=== PATIENT | female | born 1945 ===

== ENCOUNTER 2023-02-25 06:05 | Day surgery (SDC) | payer OTHER ==
[~2023-02-25] VITALS: Ht 157.5 cm; Wt 71.2 kg
[~2023-02-25 06:05] MED LIST: CILOSTAZOL50 MG PO; COZAAR100 MG PO; HUMALOG MI100 UNIT/2; LIPITOR40 MG PO; PLAVIX75 MG PO; TOPROL XL25 M1 PO; TRIJARDY XR 121 EACH PO
[2023-02-25] MEDS ORDERED: TRAM1TAB98 PO (08:37)
== END 2023-02-25 11:10 | disposition home or self-care (01) ==
LOC: CIR.AMB 06:05
PROVIDERS: ATTEND Surgery
DX: C20 Malignant neoplasm of rectum (principal); R19.5 Other fecal abnormalities; I10 Essential (primary) hypertension; E78.5 Hyperlipidemia, unspecified